=== PATIENT | male | born 1990 | race Caucasian/White ===

== ENCOUNTER 2017-08-09 18:00 | Emergency (ER) | payer OTHER ==
[~2017-08-09] VITALS: Ht 175.3 cm; Wt 70.0 kg
[~2017-08-09 18:00] MED LIST: OMEP40CA2 PO; PROC25SU22 RECTAL
[2017-08-09 18:02] VITALS: BP 150/87; PULSE 109; RESP 12; TEMP 98.7; O2SAT 97
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
[2017-08-09] MEDS ORDERED: LORazepam 2 MG/ML VIAL IM ONE (18:45)
[2017-08-09] MEDS ORDERED: MORPHINE SULFATE 4 MG/ML INJ IM ONE (18:45)
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
[2017-08-09] MEDS ORDERED: CYCL1TAB29 PO (19:40)
[2017-08-09] MEDS ORDERED: IBUP800T23 PO (19:40)
== END 2017-08-09 19:59 | disposition home or self-care (01) ==
LOC: NEPD 18:00
DX: S16.1XXA Strain of muscle, fascia and tendon at neck level, initial encounter (principal); S39.012A Strain of muscle, fascia and tendon of lower back, initial encounter; F12.90 Cannabis use, unspecified, uncomplicated; V49.59XA Passenger injured in collision with other motor vehicles in traffic accident, initial encounter; Y92.410 Unspecified street and highway as the place of occurrence of the external cause; Z72.0 Tobacco use; Z88.0 Allergy status to penicillin
CPT/HCPCS: 70450; 72125; 72131; 96372; 99284; J2060; J2270; L0150

== ENCOUNTER 2018-04-01 18:15 | Emergency (ER) | payer SELFPAY ==
[~2018-04-01 18:15] MED LIST changes: +CYCL10TA PO; +IBUP1TAB7 PO
[2018-04-01 18:32] VITALS: BP 137/60; PULSE 81; RESP 17; TEMP 98.6; O2SAT 100
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
[2018-04-01] MEDS ORDERED: ACETAMINOPHEN/HYDROcodone 325 MG/5 MG TAB PO ONE (19:00)
[2018-04-01] MEDS ORDERED: SULFAMETHOXAZOLE-TRIMETHOPRIM DS 800-160 MG TAB PO ONE (19:00)
[2018-04-01] MEDS ORDERED: TETANUS/DIPHTHERIA TOXOID ADULT 0.5 ML VIAL IM ONE (19:15)
[2018-04-01 20:20] VITALS: RESP 16
[2018-04-01] MEDS ORDERED: BACT800T5 PO (20:49)
[2018-04-01] MEDS ORDERED: TYLE325T PO (20:49)
== END 2018-04-01 20:57 | disposition home or self-care (01) ==
LOC: NEPD 18:15
DX: L03.114 Cellulitis of left upper limb (principal); K08.89 Other specified disorders of teeth and supporting structures; F12.10 Cannabis abuse, uncomplicated; F17.200 Nicotine dependence, unspecified, uncomplicated; Z23 Encounter for immunization
CPT/HCPCS: 90471; 90714

== ENCOUNTER 2018-04-04 20:19 | Emergency (ER) | payer OTHER ==
[~2018-04-04] VITALS: Ht 177.8 cm; Wt 73.0 kg
[~2018-04-04 20:19] MED LIST changes: +BACT800T5 PO; -CYCL10TA PO; -IBUP1TAB7 PO; -OMEP40CA2 PO; -PROC25SU22 RECTAL; +TYLE325T PO
[2018-04-04] MEDS ORDERED: IOHEXOL 350 MG/ML 10 ML VIAL (for RAD DIAG) IVCONTRAST ONE (20:20)
[2018-04-04 20:31] VITALS: BP 151/96; PULSE 92; RESP 16; TEMP 97.3; O2SAT 99
[2018-04-04 21:12] LABS: AUTOMATED NEUTROPHIL # 10.5 TH/MM3 (1.8-7.7); BASOPHIL # 0.1 TH/MM3 (0-0.2); BASOPHIL % 0.4 % (0.0-2.0); EOSINOPHIL # 0.1 TH/MM3 (0-0.4); HEMATOCRIT 44.8 % (39.0-51.0); HEMOGLOBIN 15.3 GM/DL (13.0-17.0); LYMPH % 15.3 % (9.0-44.0); LYMPHOCYTE # 2.1 TH/MM3 (1.0-4.8); MEAN CELL VOLUME 90.6 FL (80.0-100.0); MEAN CORPUSCULAR HGB CONC 34.2 % (32.0-36.0); MEAN PLATELET VOLUME 9.4 FL (7.0-11.0); MONO % 6.6 % (0.0-8.0); MONOCYTE # 0.9 TH/MM3 (0-0.9); NEUT % 76.7 % (16.0-70.0); PLATELET COUNT 202 TH/MM3 (150-450); RED BLOOD COUNT 4.94 MIL/MM3 (4.50-5.90); RED CELL DISTRIBUTION WIDTH 12.3 % (11.6-17.2); WHITE BLOOD COUNT 13.7 TH/MM3 (4.0-11.0)
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
[2018-04-04 21:39] LABS: BICARBONATE 28.6 MEQ/L (21.0-32.0); CALCIUM 9.9 MG/DL (8.5-10.1); CREATININE 1.19 MG/DL (0.60-1.30)
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
[2018-04-04] MEDS ORDERED: KETOROLAC TROMETHAMINE 30 MG/ML (IVP) VIAL IV PUSH ONE (23:15)
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
[2018-04-04] MEDS ORDERED: CYCL10TA PO (23:52)
[2018-04-04] MEDS ORDERED: ARTHTAB5 PO (23:52)
[2018-04-05 00:06] VITALS: BP 115/70; PULSE 66; RESP 16; TEMP 98.6; O2SAT 99
== END 2018-04-05 01:31 | disposition home or self-care (01) ==
LOC: NEPE 20:19
DX: S16.1XXA Strain of muscle, fascia and tendon at neck level, initial encounter (principal); S70.01XA Contusion of right hip, initial encounter; S24.109A Unspecified injury at unspecified level of thoracic spinal cord, initial encounter; F12.90 Cannabis use, unspecified, uncomplicated; F17.200 Nicotine dependence, unspecified, uncomplicated; V03.10XA Pedestrian on foot injured in collision with car, pick-up truck or van in traffic accident, initial encounter; Y92.410 Unspecified street and highway as the place of occurrence of the external cause
CPT/HCPCS: 70450; 71045; 71260; 72125; 72129; 72132; 73502; 74177; 80048; 85025; 96374; 99285; J1885; L0150; Q9967

== ENCOUNTER 2018-04-08 11:15 | Emergency (ER) | payer SELFPAY ==
[~2018-04-08 11:15] MED LIST changes: +ARTHTAB5 PO; -BACT800T5 PO; +CYCL10TA PO; -TYLE325T PO
[2018-04-08] MEDS ORDERED: BACT400T PO (19:09)
[2018-04-08] MEDS ORDERED: IBUP1TAB7 PO (19:43)
[2018-04-08] MEDS ORDERED: CLIN300C5 PO (19:43)
== END 2018-04-08 11:16 | disposition left against medical advice (07) ==
LOC: NED 11:15
DX: Z03.89 Encounter for observation for other suspected diseases and conditions ruled out (principal)
CPT/HCPCS: 99281

== ENCOUNTER 2018-04-08 18:47 | Emergency (ER) | payer SELFPAY ==
[~2018-04-08] VITALS: Ht 177.8 cm; Wt 75.0 kg
[2018-04-08 18:51] VITALS: BP 145/61; PULSE 91; RESP 18; TEMP 98.3; O2SAT 97
[2018-04-08 19:05] VITALS: BP 140/80; PULSE 78; RESP 16; O2SAT 97
[2018-04-08] MEDS ORDERED: BACT400T PO (19:09)
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
[2018-04-08] MEDS ORDERED: IBUP1TAB7 PO (19:43)
[2018-04-08] MEDS ORDERED: CLIN300C5 PO (19:43)
[2018-04-08] MEDS ORDERED: CLINDAMYCIN 150 MG CAP PO ONE (19:45)
[2018-04-08] MEDS ORDERED: traMADol HCL 50 MG TAB PO ONE (19:45)
[2018-04-08] MEDS ORDERED: IBUPROFEN 600 MG TAB PO ONE (19:45)
== END 2018-04-08 20:00 | disposition home or self-care (01) ==
LOC: NEPE 18:47
DX: R23.8 Other skin changes (principal); F12.90 Cannabis use, unspecified, uncomplicated; F17.200 Nicotine dependence, unspecified, uncomplicated
CPT/HCPCS: 99283

== ENCOUNTER 2018-04-26 05:20 | Emergency (ER) | payer SELFPAY ==
[~2018-04-26] VITALS: Ht 175.3 cm; Wt 75.0 kg
[~2018-04-26 05:20] MED LIST changes: -ARTHTAB5 PO; +BACT400T PO; +CLIN300C5 PO; -CYCL10TA PO; +IBUP1TAB7 PO
[2018-04-26 05:29] VITALS: BP 153/89; PULSE 62; RESP 18; TEMP 97.3; O2SAT 99
[2018-04-26 05:46] VITALS: BP 138/85; PULSE 52; RESP 13; O2SAT 97
[2018-04-26] MEDS ORDERED: SODIUM CHLOR 0.9% 1000 ML INJ 1,000 ML IV ONE (06:00)
[2018-04-26] MEDS ORDERED: LOPERAMIDE HCL 2 MG CAP PO ONE (06:00)
[2018-04-26] MEDS ORDERED: ONDANSETRON ODT 4 MG TAB PO ONE (06:00)
[2018-04-26] MEDS ORDERED: METHOCARBAMOL INJ 1,000 MG in SODIUM CHLOR 0.9% 250 ML INJ 250 ML IV ONE (06:00)
[2018-04-26] MEDS ORDERED: cloNIDine HCL 0.1 MG/24 HR PATCH T-DERMAL ONE (06:00)
[2018-04-26] MEDS ORDERED: CYCL10TA PO (06:04)
[2018-04-26] MEDS ORDERED: ONDA4TAB7 SL (06:04)
--- NOTE | 2018-04-26 06:05 | PD ---
HPI Chief Complaint: Alcohol/Drug Intoxication Time Seen by Provider: 05:51 Travel History International Travel<30 days: No Contact w/Intl Traveler<30days: No Traveled to known affect area: No History of Present Illness HPI 27-year-old man, history of intranasal heroin and oxycodone use, presents emerged from complaining of withdrawal symptoms. States he decided to stop because he was "tired of it". Last used 24 hours or so ago. Planing of body aches, nausea vomiting diarrhea, feeling poorly, and chills and sweats. Has not tried to quit in the past. Denies IV drug use at all. No other complaints. History Past Medical History Narrative Medical Intranasal opioid use Social History Alcohol Use: Yes (OCCASIONAL) Tobacco Use: Yes (1 PPD) Allergies-Medications (Allergen,Severity, Reaction): Coded Allergies: penicillin G (Unverified Allergy, Unknown, 04/26/18) Reported Meds & Prescriptions Reported Meds & Active Scripts Active Review of Systems Except as stated in HPI: all other systems reviewed are Neg Physical Exam Narrative GENERAL: Well-appearing 27-year-old 27-year-old man, appears uncomfortable, nontoxic. SKIN: Cool and clammy. HEAD: Atraumatic. Normocephalic. EYES: Pupils equal and round. No scleral icterus. No injection or drainage. ENT: No nasal bleeding or discharge. Mucous membranes pink and moist. NECK: Trachea midline. No JVD. CARDIOVASCULAR: Regular rate and rhythm. No murmur appreciated. RESPIRATORY: No accessory muscle use. Clear to auscultation. Breath sounds equal bilaterally. GASTROINTESTINAL: Abdomen soft, non-tender, nondistended. Hepatic and splenic margins not palpable. MUSCULOSKELETAL: No obvious deformities. No clubbing. No cyanosis. No edema. NEUROLOGICAL: Awake and alert. No obvious cranial nerve deficits. Motor grossly within normal limits. Normal speech. PSYCHIATRIC: A little bit anxious. Data Data Last Documented VS Vital Signs Date Time Temp Pulse Resp B/P (MAP) Pulse Ox O2 Delivery O2 Flow Rate FiO2 04/26/18 05:46 52 13 138/85 (102) 97 Room Air 04/26/18 05:29 97.3 Orders Orders Ondansetron Odt (Zofran Odt) (04/26/18 06:00) Ns 1000ml Wide Open 2000 Ml/Hr (04/26/18 06:00) Clonidine 0.1 Mg Patch.7d (Catapres-Tts (04/26/18 06:00) Loperamide (Imodium) (04/26/18 06:00) Methocarbamol Inj (Robaxin Inj) (04/26/18 06:00) MDM Medical Decision Making Medical Screen Exam Complete: Yes Emergency Medical Condition: Yes Differential Diagnosis Opioid withdrawal, acute illness, dehydration, mood disorder, other Narrative Course Medical decision making Is a 27 Youman presents to the emergency department pointing of opioid withdrawal symptoms. Making a decision for himself to try to stop using opiates. We will give him a work note. We will give him referrals to local resources. Medication to help with symptoms. Diagnosis Primary Impression: Opioid withdrawal Referrals: [facility] 1 day Departure Forms: Tests/Procedures, Work Release Enter return to work date: Apr 29, 2018 Additional Instructions: Follow-up with [facility] or 1 of the outpatient resources provided. Were clonidine patch for 72 hours or until withdrawal symptoms alejandro. Use Zofran if needed for nausea or vomiting. Take Flexeril if needed for body aches. Department for any new or worsening symptoms. Graduations and good luck. You are making a great decision. Med/Other Pt SpecificInfo: Prescription(s) given Scripts Cyclobenzaprine (Flexeril) 10 Mg Tab 10 MG PO TID for Muscle Spasm, #15 TAB 0 Refills Prov: Brandon Sotelo MD 04/26/18 Ondansetron Odt (Ondansetron Odt) 4 Mg Tab 4 MG SL Q8HR Y for Nausea/Vomiting, #12 TAB 0 Refills Prov: Brandon Sotelo MD 04/26/18 Disposition: 01 DISCHARGE HOME Condition: Stable Brandon Sotelo MD Apr 26, 2018 06:05
== END 2018-04-26 07:15 | disposition home or self-care (01) ==
LOC: NEPC 05:20
DX: F11.23 Opioid dependence with withdrawal (principal); R19.7 Diarrhea, unspecified; R68.83 Chills (without fever); F17.210 Nicotine dependence, cigarettes, uncomplicated; Z88.0 Allergy status to penicillin
CPT/HCPCS: 96374; 99284; J2800; J7030; J7050

== ENCOUNTER 2018-04-26 12:02 | Emergency (ER) | payer SELFPAY ==
[~2018-04-26] VITALS: Ht 175.3 cm; Wt 75.0 kg
[~2018-04-26 12:02] MED LIST changes: +CYCL10TA PO; +ONDA4TAB7 SL
[2018-04-26 12:14] VITALS: BP 150/99; PULSE 80; RESP 20; TEMP 98.2; O2SAT 98
== END 2018-04-26 13:30 | disposition left against medical advice (07) ==
LOC: NETRI 12:02
DX: R68.89 Other general symptoms and signs (principal)
CPT/HCPCS: 99281

== ENCOUNTER 2018-05-03 00:25 | Observation (INO) ==
[2018-05-05 12:49] VITALS: BP 130/76; PULSE 68; RESP 16; TEMP 97.8; O2SAT 98
== END 2018-05-04 16:15 | disposition left against medical advice (07) ==
LOC: NEPE 00:25 → NEPFCDU 00:25 → NEDA 00:25 → NEPFCDU 08:40
PROVIDERS: ADMIT Hospitalist; ATTEND Hospitalist